=== PATIENT | female | born 1955 | race Two or more races ===

== ENCOUNTER 2024-07-30 06:10 | Day surgery (SDC) | payer MEDICARE, SELFPAY ==
[2024-07-30 07:24] VITALS: BMI 25.4
[2024-07-30 07:29] VITALS: BP 187/103
[2024-07-30 07:41] VITALS: BP 164/91
[2024-07-30 10:37] VITALS: BP 139/84
[2024-07-30 10:51] VITALS: BP 116/102
[2024-07-30 11:00] VITALS: BP 144/70
== END 2024-07-30 10:26 | disposition home or self-care (01) ==
LOC: SDS 06:10
PROVIDERS: ATTENDING PHYSICIAN Internal Medicine Gastroenterology
DX: K86.89 Other specified diseases of pancreas (principal); K82.8 Other specified diseases of gallbladder; R93.3 Abnormal findings on diagnostic imaging of other parts of digestive tract
CPT/HCPCS: 43242; 43239; 88172; 88173; 88305; 88342

== ENCOUNTER → 2025-04-19 14:37 | Outpatient (REF) | payer MEDICARE, OTHER, SELFPAY | LOC: MRI 14:37 | PROVIDERS: ATTENDING PHYSICIAN Internal Medicine Gastroenterology; FAMILY PHYSICIAN Family Medicine | DX: K76.0 Fatty (change of) liver, not elsewhere classified (principal) | CPT/HCPCS: 74181; 76391 ==